=== PATIENT | male | born 1945 | race Caucasian/White ===

== ENCOUNTER 2018-09-11 15:19 | Emergency (ER) | payer MEDICARE, OTHER ==
[2018-09-11] MEDS ORDERED: Clindamycin 600 MG/D5W BAG(*) 600 MG/50 ML BAG IV ONE (17:25)
[2018-09-11] MEDS ORDERED: Ketorolac INJ* 30 MG/ML 1 ML VIAL IV PUSH ONE (17:25)
[2018-09-11] MEDS ORDERED: Morphine 4 MG/ML VIAL (1 ml) 4 MG/ML VIAL IV ONE (17:26)
--- NOTE | 2018-09-11 17:29 | ED ---
Throat Pain/Nasal Congestion - HPI Summary HPI Summary: 73 year old male presents with dental infection for the past couple days. He was seen by his dentist today and sent to the ER for IV antibiotics. He admits to occasional chills but no fevers. No chest pain or shortness of breath. No difficulty swallowing. Denies any pain or swelling around eyes or pain with eye movement. He is not currently taking any antibiotics. Has history of high blood pressure. He is going to following up with an oral surgeon as soon as possible. - History of Current Complaint Chief Complaint: EDDentalPain Time Seen by Provider: 09/11/18 17:11 - Allergies/Home Medications Allergies/Adverse Reactions: Allergies Allergy/AdvReac Type Severity Reaction Status Date / Time No Known Allergies Allergy Verified 10/11/14 21:57 Home Medications: Home Medications Aspirin 81 mg CHEW TAB* [Aspirin Low Dose TAB*] 81 mg PO DAILY 09/11/18 [ History Confirmed 09/11/18] Lisinopril TAB* [Prinivil TAB*] 10 mg PO DAILY 09/11/18 [History Confirmed 09/11] PMH/Surg Hx/FS Hx/Imm Hx Endocrine/Hematology History: Denies: Hx Anticoagulant Therapy Cardiovascular History: Reports: Hx Hypertension - "BORDERLINE" - Surgical History Surgery Procedure, Year, and Place: [facility] Infectious Disease History: No Infectious Disease History: Reports: Hx Shingles Denies: Traveled Outside the [place] in Last 30 Days - Family History Known Family History: Positive: Non-Contributory - Social History Alcohol Use: Occasionally Substance Use Type: Reports: Marijuana Smoking Status (MU): Never Smoked Tobacco Review of Systems Positive: Chills. Negative: Fever Positive: Dental Pain Negative: Chest Pain Negative: Shortness Of Breath All Other Systems Reviewed And Are Negative: Yes Physical Exam Triage Information Reviewed: Yes Vital Signs On Initial Exam: Initial Vitals Temp Pulse Resp BP Pulse Ox 98.4 F 94 18 200/116 97 09/11/18 15:25 09/11/18 15:25 09/11/18 15:25 09/11/18 15:25 09/11/18 15:25 Vital Signs Reviewed: Yes Appearance: Positive: Well-Appearing Skin: Positive: Warm, Dry Head/Face: Positive: Normal Head/Face Inspection, Other - swelling to right side of face Eyes: Positive: Normal, EOMI, GABRIEL ENT: Positive: Pharynx normal, TMs normal, Other - erythema to upper gum Dental: Positive: Gross Decay/Caries @ - throughout, Abscess @ - upper gum Respiratory/Lung Sounds: Positive: Clear to Auscultation, Breath Sounds Present Cardiovascular: Positive: Normal, RRR Musculoskeletal: Positive: Normal Neurological: Positive: Normal Psychiatric: Positive: Normal Diagnostics - Vital Signs Vital Signs Temp Pulse Resp BP Pulse Ox 09/11/18 15:25 98.4 F 94 18 200/116 97 - Laboratory Lab Statement: Any lab studies that have been ordered have been reviewed, and results considered in the medical decision making process. Re-Evaluation - Re-Evaluation First Eval Re-Evaluation Time: 18:00 Comment: feeling nausous Second Eval Re-Evaluation Time: 18:30 Change: Improved Comment: feeling better EENT Course/Dx - Course Course Of Treatment: 73 year old male presents with dental infection for the past couple days. He was seen by his dentist today and sent to the ER for IV antibiotics. He admits to occasional chills but no fevers. No chest pain or shortness of breath. No difficulty swallowing. Denies any pain or swelling around eyes or pain with eye movement. He is not currently taking any antibiotics. Has history of high blood pressure. He is going to following up with an oral surgeon as soon as possible. On exam has edema noted to the right side of face. No periorbital edema. Erythema noted of right upper gums. gave dose of clindamycin and morphine and Toradol and feeling better. patient has script for PCN that will have continue. will order tramadol for pain. patient understand and agrees with plan. - Differential Diagnoses Differential Diagnoses: Dental Abscess, Dental Caries, Fractured Tooth - Diagnoses Provider Diagnoses: Dental infection Discharge - Sign-Out/Discharge Documenting (check all that apply): Patient Departure Patient Received Moderate/Deep Sedation with Procedure: No - Discharge Plan Condition: Good Disposition: HOME Prescriptions: traMADol TAB* [Ultram*] 50 mg PO Q8H PRN #12 tab MDD 3 PRN Reason: Pain Patient Education Materials: Dental Abscess (ED) Referrals: Abel Ruano MD [Primary Care Provider] - Additional Instructions: start antibiotic as prescribed by dentist Take tyenlol or ibuprofen as needed for pain every 6 hours, use tramadol as needed for pain every 8 hours follow up with dentist as soon as possible Return to ED if develop any new or worsening symptoms - Billing Disposition and Condition Condition: GOOD Disposition: Home
[2018-09-11] MEDS ORDERED: Ondansetron INJ* 2 MG/ML VIAL IV ONE (17:58)
[2018-09-11] MEDS ORDERED: Ondansetron INJ* 2 MG/ML VIAL ONE (17:59)
[2018-09-11 18:53] VITALS: BP 169/97
== END 2018-09-11 18:52 | disposition home or self-care (01) ==
LOC: ED 15:19
DX: K04.7 Periapical abscess without sinus (principal); Z79.82 Long term (current) use of aspirin; I10 Essential (primary) hypertension
CPT/HCPCS: 96374; 96375; 99282; J1885; J2270; J2405